=== PATIENT | female | born 1995 | race African-American/Black ===

== ENCOUNTER 2024-01-13 11:05 | Emergency (ER) | payer OTHER, SELFPAY ==
[2024-01-13] VITALS (7 sets, daily range): BP systolic 117–145; BP diastolic 69–91; PULSE 71–118; RESP 18–29; TEMP 37.1; O2SAT 96–100; BMI 27.3
--- NOTE | 2024-01-13 11:18 | EKG_ITS ---
[address] [id number] [address] [address] Test Date: 2024-01-13 Pat Name: Jerson Willard Department: Room: Gender: Female Finish Off Operator: THOMAS : 1995 Requested By: Order Number: [id number] Reading MD: Jonathan Jarvis MD Measurements Intervals [place] Rate: 103 P: 84 LA: 124 QRS: 88 QRSD: 80 T: 24 QT: 364 QTc: 476 Interpretive Statements Sinus tachycardia Possible Left atrial enlargement Nonspecific ST abnormality NO PRIOR TRACING Electronically Signed On 01-14-2024 7:37:20 PDT by Jonathan Jarvis MD
--- NOTE | 2024-01-13 11:22 | DI.RAD.S_ITS ---
PROCEDURE: XR CHEST 1V INDICATIONS: chest pain TECHNIQUE: One view of the chest was acquired. COMPARISON: None. FINDINGS: Surgical changes and devices: None. Lungs and pleura: Lungs are clear. No pleural effusions or pneumothorax. Mediastinum: Mediastinal contours appear normal. Heart size is normal. Bones and chest wall: No suspicious bony lesions. Overlying soft tissues appear unremarkable. IMPRESSION: No acute cardiopulmonary abnormality is seen. Dictated by: Julieth Lebron M.D. on 01/13/2024 at 15:31 Approved by: Julieth Lebron M.D. on 01/13/2024 at 15:33
--- NOTE | 2024-01-13 11:24 | ED.ARRPALP ---
HPI - Arrhythmia/Palpitations General Chief Complaint: Arrhythmia/Palpitations Stated Complaint: palpitations, high heart rate , vomiting Time Seen by Provider: 01/13/24 11:17 Source: patient Mode of arrival: Wheelchair History of Present Illness HPI narrative: Patient here with a co-worker. 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 She is feeling much better now. Patient has history of SVT and was fully worked up she states in [place], echocardiogram and was on metoprolol being followed by a silvering applicator but symptoms improved and she no longer required cardiology services or metoprolol. She has been symptom free for the past 10 years. She felt like she was in SVT and she went through the vagal maneuvers prior to arrival. She is currently sinus tachycardia rate 103 and beginning to relax and on heart monitor is now sinus rhythm rate 97. Denies any chest pain. No dyspnea. She does not want chest x-ray at this time. Related Data Previous Rx's Medication Instructions Recorded potassium chloride 10 mEq 10 meq PO BID #20 tabs 01/13/24 tablet,extended release Review of Systems Review of Systems Narrative: GENERAL: negative chills, fatigue, malaise, fever, sweats. HEENT: negative sinus pain, ear pain, sore throat RESPIRATORY: negative dyspnea, cough CARDIOVASCULAR: negative chest pain, positive palpitations GASTROINTESTINAL: negative nausea, vomiting, abdominal pain : negative dysuria, frequency, hematuria MUSCULOSKELETAL: negative muscle or bony pain SKIN: negative rash, skin lesions NEUROLOGIC: negative weakness, numbness, positive dizzy ROS Unobtainable: All systems reviewed & are unremarkable except as noted in HPI and below Patient History Social History Smoking Status: Never smoker Smoking Status: Never smoker alcohol intake frequency: holidays/special occasions only Substance Use Type: does not use Exam Narrative Exam Narrative: GENERAL: in no distress, not toxic not dyspneic HEAD: Normocephalic. EYES: Pupils equal round ENT: Mucous membranes moist. NECK: Trachea midline. No thyromegaly CARDIOVASCULAR: Regular rate and rhythm, tachycardic RESPIRATORY: Clear to auscultation. Breath sounds equal bilaterally. No wheezes, rales, or rhonchi. GASTROINTESTINAL: Abdomen soft, non-tender EXTREMITIES: No gross deformities. BACK: No flank tenderness. NEURO: AOx4. SKIN: Warm and dry PSYCH: Not anxious, is cooperative Initial Vital Signs Initial Vital Signs: Vital Signs Temperature 98.7 F 01/13/24 11:08 Pulse Rate 118 H 01/13/24 11:08 Respiratory Rate 18 01/13/24 11:08 Blood Pressure 145/91 H 01/13/24 11:08 Pulse Oximetry 100 01/13/24 11:08 Oxygen Delivery Method Room Air 01/13/24 11:08 Course Orders Ordered: Discontinued Medications Aspirin (Aspirin 81 Mg Chew Tab) 324 mg PO NOW ONE Stop: 01/13/24 11:23 Last Admin: 01/13/24 12:16 Dose: Not Given Documented By: CHARLIE Potassium Chloride (Potassium Chloride 20 Meq Tab) 20 meq PO NOW ONE Stop: 01/13/24 13:08 Last Admin: 01/13/24 13:12 Dose: 20 meq Documented By: CHARLIE Vital Signs Vital signs: Vital Signs - 8 hr 01/13/24 11:08 01/13/24 11:12 01/13/24 11:12 Temperature 98.7 F Pulse Rate 118 H 115 H Respiratory Rate 18 Blood Pressure 145/91 H 145/91 H Pulse Oximetry 100 100 Oxygen Delivery Method Room Air Room Air 01/13/24 11:30 01/13/24 11:35 01/13/24 11:35 Temperature Pulse Rate 90 88 Respiratory Rate 29 H 23 Blood Pressure 124/83 Pulse Oximetry 100 96 Oxygen Delivery Method Room Air MDM - Arrhythmia/Palpitations Lab Data 01/13/24 11:19 01/13/24 11:19 Labs: Lab Results 01/13/24 Range/Units 11:19 WBC 7.4 (4.5-11.0) X10^3/uL RBC 5.86 H (4.0-5.2) X10^6/uL Hgb 15.4 (12.0-16.0) g/dL Hct 46.0 (36-46) % MCV 78.5 L (80-100) fL MCH 26.3 (26-34) PG MCHC 33.5 (30-36) % RDW 13.3 (11.6-14.8) % Plt Count 296 (150-400) X10^3/uL Neut % (Auto) 43.6 L (50-75) % Lymph % (Auto) 40.7 H (25-40) % Grady % (Auto) 13.1 (3-14) % Eos % (Auto) 1.6 L (2-4) % Baso % (Auto) 1.0 (0-2) % Neut # (Auto) 3200 (7916-0159) /uL Lymph # (Auto) 3000 (1642-5788) /uL Grady # (Auto) 1000 H (0-900) /uL Eos # (Auto) 100 (0-450) /uL Baso # (Auto) 100 (0-100) /uL D-Dimer 216 (<500) ng/ml Sodium 138 (137-145) mmol/L Potassium 3.3 L (3.4-5.1) mmol/L Chloride 105 (98-107) mmol/L Carbon Dioxide 17 L (22-32) mmol/L BUN 9 (7-17) mg/dL Creatinine 0.87 (0.52-1.04) mg/dL Estimated GFR > 60 (>60) mL/min BUN/Creatinine Ratio 10.3 (6-22) Glucose 115 H (70-100) mg/dL Calcium 10.4 H (8.4-10.2) mg/dL Magnesium 2.1 (1.6-2.3) mg/dL Total Bilirubin 0.7 (0.2-1.3) mg/dL AST 29 (14-36) IU/L ALT 27 (<35) IU/L Alkaline Phosphatase 107 (38-126) U/L Total Creatine Kinase 118 (30-135) U/L Troponin I < 0.012 (0.01-0.034) ng/mL NT-Pro-B Natriuret Pep Cancelled Total Protein 9.7 H (6.3-8.2) g/dL Albumin 5.2 H (3.5-5.0) g/dL Globulin 4.5 H (1.7-4.1) g/dL Albumin/Globulin Ratio 1.2 (1.0-2.8) Lipase Cancelled TSH 0.145 L (0.47-4.68) uIU/mL Serum , Qual Negative (Negative) MDM Narrative Medical decision making narrative: Patient here with a co-worker. 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 She is feeling much better now. Patient has history of SVT and was fully worked up she states in [place], echocardiogram and was on metoprolol being followed by a silvering applicator but symptoms improved and she no longer required cardiology services or metoprolol. She has been symptom free for the past 10 years. She felt like she was in SVT and she went through the vagal maneuvers prior to arrival. She is currently sinus tachycardia rate 103 and beginning to relax and on heart monitor is now sinus rhythm rate 97. Denies any chest pain. No dyspnea. She does not want chest x-ray at this time. Patient denies any history of anxiety or anxiety attack. Patient states has not been under any stress recently. After history and exam, CBC CMP troponin D-dimer EKG hall monitor TSH magnesium test MDM Medical records reviewed: No recent visit for this complaint Differential considered: Includes but not limited to SVT pulmonary embolism hyperthyroidism, anxiety attack Lab Test results independently reviewed as above. Pertinent findings: WBC 7.4 hemoglobin 15.4 D-dimer 216 sodium 138 potassium 3.3 glucose 115 troponin less than 0.012 TSH 0.145- Independently reviewed EKG sinus tachycardia rate 103 Imaging studies independently reviewed: Chest x-ray no acute finding Consultations: None indicated at this time Treatments: Potassium tablet Re-evaluations: 1:15 p.m.. Patient feeling much better. Heart rate 79. Reviewed with patient results and exam. She likely did have SVT possibly at the beginning of this episode but with her vagal maneuver she did likely convert to sinus tachycardia and now sinus rhythm. She does have family doctor to follow up with. Thyroid panel reviewed and needs to follow up with primary care. Potassium prescription will be provided. Work note provided. Return precautions reviewed. She desires discharge home. Discussion: Appropriate for discharge home. Exam is reassuring. Return precautions reviewed. Potassium prescription provided. Patient likely did have SVT episode but will need outpatient follow up whether to resume her medications previously for SVT. She agrees with this plan. Not toxic at discharge. She desires discharge home Diagnosis: Palpitation Discharge Plan Departure Patient Disposition: Home Clinical Impression: Palpitations Instructions: DI for Palpitations Activity Restrictions/Additional Instructions: Please see family doctor in a week for re-evaluation. Please have your thyroid panel blood work redone. Potassium replacement prescription has been provided for you. Return if worse if any questions or concerns. No antiarrhythmic mixed indicated at this time. However you will need to see family doctor for re-evaluation and possible Holter monitoring and cardiology referral. Return if worse if any questions or concerns Prescriptions: New potassium chloride 10 mEq tablet extended release 10 meq PO BID Qty: 20 0RF Stand Alone Forms: Patient Portal/API, Work Release Note
[2024-01-13 11:34] LABS: Add Manual Diff / Slide Review NO; Basophils Absolute Auto 100 /uL (0-100); Eosinophils Absolute Auto 100 /uL (0-450); Eosinophils Percent Auto 1.6 % (2-4); Hemoglobin 15.4 g/dL (12.0-16.0); Lymphocytes Absolute Auto 3000 /uL (1100-4500); Lymphocytes Percent Auto 40.7 % (25-40); Mean Corpuscular HGB Conc 33.5 % (30-36); Mean Corpuscular Hemoglobin 26.3 PG (26-34); Mean Corpuscular Volume 78.5 fL (80-100); Monocytes Absolute Auto 1000 /uL (0-900); Monocytes Percent Auto 13.1 % (3-14); Neutrophils Absolute Auto 3200 /uL (1500-7000); Neutrophils Percent Auto 43.6 % (50-75); Platelet Count 296 X10^3/uL (150-400); Red Blood Cell Count 5.86 X10^6/uL (4.0-5.2); Red Cell Distribution Width 13.3 % (11.6-14.8); White Blood Cell Count 7.4 X10^3/uL (4.5-11.0)
[2024-01-13 11:44] LABS: Alanine Aminotransferase 27 IU/L (<35); Albumin 5.2 g/dL (3.5-5.0); Albumin Globulin Ratio 1.2 (1.0-2.8); Alkaline Phosphatase 107 U/L (38-126); Aspartate Aminotransferase 29 IU/L (14-36); BUN Creatinine Ratio 10.3 (6-22); Bilirubin Total 0.7 mg/dL (0.2-1.3); Blood Urea Nitrogen 9 mg/dL (7-17); Calcium 10.4 mg/dL (8.4-10.2); Carbon Dioxide 17 mmol/L (22-32); Chloride 105 mmol/L (98-107); Creatine Kinase 118 U/L (30-135); Estimated Glomerular Filt Rate > 60 mL/min (>60); Globulin 4.5 g/dL (1.7-4.1); Glucose 115 mg/dL (70-100); HEMOLYSIS < 15 (0-50); Magnesium 2.1 mg/dL (1.6-2.3); Potassium 3.3 mmol/L (3.4-5.1); Sodium 138 mmol/L (137-145); Total Protein 9.7 g/dL (6.3-8.2)
[2024-01-13 11:51] LABS: D Dimer 216 ng/ml (<500)
[2024-01-13 11:53] LABS: Pregnancy Test Serum,Qual Negative (Negative)
[2024-01-13 11:55] LABS: Troponin I < 0.012 ng/mL (0.01-0.034)
[2024-01-13 12:19] LABS: Thyroid Stimulating Hormone 0.145 uIU/mL (0.47-4.68)
[2024-01-13] MEDS: POTASSIUM CHLORIDE 20 MEQ TAB PO (13:12)
== END 2024-01-13 13:37 | disposition home or self-care (01) ==
PROVIDERS: Emergency Provider Emergency Medicine
DX: R00.2 Palpitations (principal); R42 Dizziness and giddiness
CPT/HCPCS: 36415; 71045; 80053; 82550; 83735; 84443; 84484; 84703; 85025; 85379; 93005; 99284